=== PATIENT | male | born 1950 | race Asian ===

== ENCOUNTER 2018-12-18 13:41 | Emergency (ER) | payer OTHER ==
[~2018-12-18] VITALS: Ht 180.3 cm; Wt 81.6 kg
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
--- NOTE | 2018-12-18 14:37 | NUR ---
ED Nurse Note: Patient currently in radiology for CT and xray exam. Transferred in stable condition and escorted in wheelchair
--- NOTE | 2018-12-18 15:25 | Diagnostic Imaging Report ---
Indication: Headache Technique: Contiguous 5 mm thick transaxial imaging of the head obtained in a Siemens Sensation [address] scanner. Soft tissue and bone windows generated. Automatic Exposure Control was utilized. Total Dose length Product (DLP): 1431.[address] Dose Index Volume (CTDIvol): 70.38 mGy Comparison: none Findings: There is mild prominence of the ventricles, basal cisterns, and cerebral sulci consistent with atrophy. Mild, nonspecific, white matter hypoattenuation is noted throughout the brain consistent with chronic small vessel disease. There is a tiny cystic focus in the right basal ganglia region may be an old lacunar infarct. There is no midline shift, edema, acute hemorrhage, mass effect, or abnormal extra-axial fluid collections. Bones are unremarkable. There is sinus opacification consistent with sinusitis Impression: No acute intracranial bleed, mass effect or edema. Mild atrophy of the brain. Nonspecific white matter hypoattenuation probably due to chronic small vessel disease. Probable old lacunar infarct in the right basal ganglia. Sinusitis The CT scanner at [facility] is accredited by the [employer] and the scans are performed using dose optimization techniques as appropriate to a performed exam including Automatic Exposure control.
--- NOTE | 2018-12-18 15:26 | Diagnostic Imaging Report ---
Indication: Neck Pain Findings: 3 views of the cervical spine were obtained. There is narrowing of the C5-6 disc. Endplate osteophytes are present. Bones are osteopenic. Alignment is normal. No soft tissue swelling is identified. IMPRESSION: Degenerative disc disease C5-6 Osteoporosis
[2018-12-18 15:27] VITALS: BP 126/83
--- NOTE | 2018-12-18 15:28 | NUR ---
ED Nurse Note: Patient returned from xray and CT
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
[2018-12-18] MEDS ORDERED: ROBAXIN-500MG ORAL (15:31)
[2018-12-18] MEDS ORDERED: IBU800 MG PO (15:31)
--- NOTE | 2018-12-18 15:38 | NUR ---
ER DISCHARGE NOTE: Patient is cleared to be discharged per ERMD, pt is aox4, on room air, with stable vital signs. pt was given dc and prescription instructions, pt was able to verbalize understanding, pt id band removed. pt is able to ambulate with steady gait. pt took all belongings.
[2018-12-18 15:39] VITALS: BP 121/87
== END 2018-12-18 15:14 | disposition home or self-care (01) ==
LOC: EMR 14:11
DX: S00.93XA Contusion of unspecified part of head, initial encounter (principal); S13.4XXA Sprain of ligaments of cervical spine, initial encounter; V43.52XA Car driver injured in collision with other type car in traffic accident, initial encounter; Y92.410 Unspecified street and highway as the place of occurrence of the external cause
CPT/HCPCS: 70450; 72040; 99284